=== PATIENT | male | born 1935 ===

== ENCOUNTER → 2017-12-04 | Outpatient (CLI) | payer MEDICARE, OTHER | END | disposition home or self-care (01) | LOC: GMAH 11:51 | PROVIDERS: ATTEND Family Medicine | DX: Z12.5 Encounter for screening for malignant neoplasm of prostate (principal); E03.9 Hypothyroidism, unspecified; E78.2 Mixed hyperlipidemia | CPT/HCPCS: 84443; 84550; G0103 ==

== ENCOUNTER 2018-11-03 16:42 | Emergency (ER) | payer MEDICARE, OTHER ==
[2018-11-03 17:03] VITALS: TEMP 96.2
--- NOTE | 2018-11-03 17:05 | ED.PDOC ---
History of Present Illness - General Chief Complaint: Cardiovascular Problem Stated Complaint: bradycardia Time Seen by Provider: 11/03/18 16:47 Source: patient, Vital Signs reviewed, RN/MD Exam Limitations: no limitations - History of Present Illness Initial Comments: received a call from Dr. Phoenix that he was sending Mr. Navarro over for evaluation of bradycardia & transfer for consideration of pacemaker placement. Reportedly he had a syncopal episode yesterday. He denies it. He said he felt weak & almost fell but did not. Presently he says he feels fine. Timing/Duration: other - unknown Severity: moderate Activities at Onset: none Prior Chest Pain/Cardiac Workup: stress test Improving Factors: nothing Worsening Factors: nothing Nitro Today/Relief: no nitro taken today Aspirin Treatment Today: no aspirin today Associated Symptoms: denies symptoms Allergies/Adverse Reactions: Allergies NO KNOWN ALLERGY Allergy (Verified 11/03/18 16:57) Home Medications: Ambulatory Orders Levothyroxine Sodium 125 mcg PO DAILY 11/03/18 Lisinopril 10 mg PO DAILY 11/03/18 Metformin HCl 1,000 mg PO BID 11/03/18 Metoprolol Tartrate 100 mg PO DAILY 11/03/18 Rivaroxaban [Xarelto] 20 mg PO DAILY 11/03/18 Simvastatin 20 mg PO BEDTIME 11/03/18 Review of Systems - Review of Systems Constitutional: States: no symptoms reported EENTM: States: no symptoms reported Respiratory: States: no symptoms reported Cardiology: States: no symptoms reported Gastrointestinal/Abdominal: States: no symptoms reported Genitourinary: States: no symptoms reported Musculoskeletal: States: no symptoms reported Skin: States: no symptoms reported Endocrine: States: no symptoms reported Hematologic/Lymphatic: States: no symptoms reported Past Medical History (General) - Patient Medical History Hx Stroke: No Hx Cardiac Disorders: Yes - Atrial fib Hx Congestive Heart Failure: No Hx Hypertension: Yes Hx Thyroid Disease: Yes Hx Diabetes: Yes Surgical History: tonsillectomy - Vaccination History Hx Influenza Vaccination: Yes Hx Pneumococcal Vaccination: Yes - Social History Hx Tobacco Use: No Family Medical History - Family History Father Family History: Unknown Living Status: Unknown Physical Exam - Physical Exam General Appearance: Alert, Comfortable, No apparent distress Eyes, Ears, Nose, Throat Exam: other - anicteric; pink conjunctiva Neck: supple, normal inspection Respiratory: lungs clear, normal breath sounds, no respiratory distress Cardiovascular/Chest: no edema, no JVD, no murmur, bradycardia, irregularly irregular Gastrointestinal/Abdominal: non tender, soft Extremity: normal inspection, no pedal edema Neurologic: alert, normal mood/affect, oriented x 3 Skin Exam: normal color, warm/dry Progress - Progress Progress: 11/03/18 18:24 Unchanged - Results/Orders Results/Orders: Mg 1.6 Tr normal - EKG/XRAY/CT EKG: Atrial - with artifact; HR 41, Fibrillation, RBBB, nonspecific ST T wave Chg, Unchanged from - office EKG. Comments: EKG #2 - unchanged XRAY: chest - normal - Consult/PCP Time Called: 18:58 Consult/PCP: Dr. Kirkpatrick @ [facility] - Additional EKG/XRAY/Consults EKG #2: Atrial, Fibrillation, RBBB, nonspecific ST T wave Chg, Unchanged from Departure - Departure Clinical Impression: Bradyarrhythmia, Hypomagnesemia Time of Disposition: 18:59 Home Medications: Ambulatory Orders Levothyroxine Sodium 125 mcg PO DAILY 11/03/18 Lisinopril 10 mg PO DAILY 11/03/18 Metformin HCl 1,000 mg PO BID 11/03/18 Metoprolol Tartrate 100 mg PO DAILY 11/03/18 Rivaroxaban [Xarelto] 20 mg PO DAILY 11/03/18 Simvastatin 20 mg PO BEDTIME 11/03/18 Critical Care Note - Critical Care Note Total Time (mins): 30 Transfer to Outside Facility - Transfer Information Accepting Provider:: Dr. Kirkpatrick Accepting Facility: [facility] Reason for Transfer: required specialist not available
--- NOTE | 2018-11-03 17:14 | RAD ---
EXAM: Chest,1 View CLINICAL INDICATION: Bradycardia COMPARISON: There is no previous study for comparison. FINDINGS: A single view of the chest was obtained. The heart size is normal. The pulmonary vascularity is unremarkable. The lungs are clear. There is no consolidation, infiltrate, pleural effusion, or pneumothorax. IMPRESSION: No evidence of active pulmonary disease. Electronically signed by: Grover Santana MD 11/03/2018 5:13 PM [facility]
[2018-11-03 17:40] VITALS: BP 137/65; O2SAT 98
[2018-11-03] MEDS ORDERED: MAGNESIUM SULFATE PREMIX 2GM 2 GM in PREMIX BAG 1 BAG IVPB ONE (18:28)
[2018-11-03] MEDS ORDERED: MAGNESIUM SULFATE PREMIX 2GM 50 ML IVPB ONE (18:31)
== END 2018-11-03 19:45 | disposition short-term general hospital (02) ==
LOC: ER 16:42
DX: R00.1 Bradycardia, unspecified (principal); E83.42 Hypomagnesemia; I48.91 Unspecified atrial fibrillation; I45.10 Unspecified right bundle-branch block; E11.9 Type 2 diabetes mellitus without complications; E07.9 Disorder of thyroid, unspecified; I10 Essential (primary) hypertension; Z95.0 Presence of cardiac pacemaker; Z79.899 Other long term (current) drug therapy; Z79.84 Long term (current) use of oral hypoglycemic drugs
CPT/HCPCS: 36415; 71045; 80053; 83735; 84443; 84484; 85025; 93005; J3475

== ENCOUNTER → 2018-12-24 | Outpatient (CLI) | payer MEDICARE, OTHER | LOC: GMAH 10:51 | PROVIDERS: ATTEND Family Medicine | DX: E03.9 Hypothyroidism, unspecified (principal); E78.2 Mixed hyperlipidemia; Z12.5 Encounter for screening for malignant neoplasm of prostate | CPT/HCPCS: 84443; 84550; G0103 ==

== ENCOUNTER → 2020-06-06 | Outpatient (CLI) | payer MEDICARE, OTHER | LOC: GMA MATASK 14:29 | PROVIDERS: ATTEND Family Medicine | DX: M1A.9XX0 Chronic gout, unspecified, without tophus (tophi) (principal); Z12.5 Encounter for screening for malignant neoplasm of prostate; I10 Essential (primary) hypertension; E11.9 Type 2 diabetes mellitus without complications; E78.2 Mixed hyperlipidemia | CPT/HCPCS: 84443; 84550; G0103 ==